=== PATIENT | female | born 1995 | race Caucasian/White ===

== ENCOUNTER 2021-10-05 12:39 | Emergency (ER) | payer OTHER ==
[2021-10-05 13:36] LABS: BILIRUBIN NEGATIVE (NEGATIVE); BLOOD NEGATIVE Ery/uL (NEGATIVE); CLARITY CLEAR (CLEAR); COLOR YELLOW (YELLOW); GLUCOSE (U) NORMAL (NORMAL); LEUKOCYTES NEGATIVE Leu/uL (NEGATIVE); NITRITE NEGATIVE (NEGATIVE); PROTEIN NEGATIVE (NEGATIVE); SPECIFIC GRAVITY <=1.005 (1.001-1.030); UROBILINOGEN 0.2 mg/dL (0.2-1.0); pH 6.5 (5.0-9.0)
[2021-10-05 13:43] LABS: URINARY WBC RARE
[2021-10-05 13:58] LABS: BASOPHIL 0.4 % (0-2); EOSINOPHIL 3.7 % (0-5); HCT 43.1 % (37.0-47.0); HGB 14.3 g/dl (12.5-16.0); LYMPHOCYTE 18.3 % (15-48); MCH 29.2 pg (25.0-31.0); MCHC 33.2 g/dL (32.0-36.0); MCV 88.1 fL (78.0-100.0); MONOCYTE 7.5 % (0-12); MPV 11.2 fL (6.0-9.5); NEUTROPHIL 69.9 % (41-80); NRBC 0; PLT 325 K/uL (150-400); RBC 4.89 M/uL (4.20-5.40); RDW 12.3 % (11.5-14.0); WBC 8.1 K/uL (4.0-10.5)
[2021-10-05 14:29] LABS: ALBUMIN 3.9 g/dL (3.4-5.0); BILIRUBIN - TOTAL 0.5 mg/dL (0.2-1.0); BUN/CREAT RATIO (CALC) 11.1 RATIO; CREATININE 0.54 mg/dL (0.51-0.95); GLOBULIN (CALCULATION) 4.2 g/dL; TOTAL PROTEIN 8.1 g/dL (6.4-8.2)
[2021-10-05 15:42] LABS: CORONAVIRUS 2019 SARS-COV-2 NEGATIVE (NEGATIVE); INFLUENZA A NAA NEGATIVE (NEGATIVE)
[2021-10-05] MEDS ORDERED: PREDNISONE 20MG20 MG PO (17:39)
[2021-10-05] MEDS ORDERED: ONDANSETRON ODT4 MG PO (17:39)
== END 2021-10-05 17:58 | disposition home or self-care (01) ==
LOC: FER 12:39
PROVIDERS: Physician Assistant
DX: J45.901 Unspecified asthma with (acute) exacerbation (principal); R42 Dizziness and giddiness; F17.290 Nicotine dependence, other tobacco product, uncomplicated; Z20.822 Contact with and (suspected) exposure to COVID-19
CPT/HCPCS: 36415; 71046; 80053; 81001; 83690; 85025; 93005; J2405; J7030; U0002